=== PATIENT | female | born 1990 | race Caucasian/White ===

== ENCOUNTER 2019-04-13 19:44 | Emergency (ER) | payer MEDICAID ==
[~2019-04-13] VITALS: Ht 157.5 cm; Wt 61.3 kg
[~2019-04-13 19:44] MED LIST: CLIN-96 PO; IBUP-1986 PO; NITR100C11 PO
[2019-04-13 19:52] VITALS: BP 112/80
[2019-04-13] MEDS ORDERED: TETanus/Pertussis (Acell)/Diphther VAC/PF (Tdap-Adult) 0.5ml syringe IM ONE (20:55)
[2019-04-13] MEDS ORDERED: CEPH-571 PO (20:57)
== END 2019-04-13 21:08 | disposition home or self-care (01) ==
LOC: ER 19:45
DX: S61.432A Puncture wound without foreign body of left hand, initial encounter (principal); F41.9 Anxiety disorder, unspecified; F31.9 Bipolar disorder, unspecified; Z56.0 Unemployment, unspecified; Z79.2 Long term (current) use of antibiotics; Z79.899 Other long term (current) drug therapy; W22.8XXA Striking against or struck by other objects, initial encounter; Y93.89 Activity, other specified; Y92.89 Other specified places as the place of occurrence of the external cause; Y99.8 Other external cause status
CPT/HCPCS: 73130; 90471; 99283; 99285

== ENCOUNTER 2021-08-13 20:06 | Emergency (ER) | payer MEDICAID ==
[~2021-08-13] VITALS: Ht 157.5 cm; Wt 75.9 kg
[~2021-08-13 20:06] MED LIST changes: +CEPH-571 PO; -CLIN-96 PO; +CLIN-97 PO
[2021-08-13 20:21] VITALS: BP 143/98
--- NOTE | 2021-08-13 20:54 | NUR ---
PATIENT LEFT WITHOUT BEING SEEN STATING THAT SHE "WILL JUST GO TO URGENT CARE TOMORROW"
== END 2021-08-13 20:55 | disposition left against medical advice (07) ==
LOC: ER 20:07
DX: K08.89 Other specified disorders of teeth and supporting structures (principal); Z53.21 Procedure and treatment not carried out due to patient leaving prior to being seen by health care provider

== ENCOUNTER 2021-09-03 18:09 | Emergency (ER) | payer MEDICAID ==
[~2021-09-03] VITALS: Ht 157.5 cm; Wt 75.0 kg
[2021-09-03 18:50] VITALS: BP 119/99
[2021-09-03 19:28] LABS: URINE HCG NEGATIVE (NEG)
[2021-09-03 19:32] LABS: CLARITY,URINE CLOUDY (Clear); COLOR,URINE YELLOW (Yellow); GLUCOSE, URINE NEGATIVE (Neg); KETONES,URINE NEGATIVE (Neg); LEUKOCYTE ESTERASE ,URINE MODERATE (Neg); NITRITES, URINE POSITIVE (Neg); OCCULT BLOOD,URINE SMALL (Neg); PROTEIN,URINE 30 mg/dl (Neg); UROBILINOGEN,URINE 0.2 E.U/dL (0.2-1.0)
[2021-09-03 19:33] LABS: UA COLLECTION TYPE CLN CATCH MIDSTREAM
[2021-09-03 19:37] LABS: WBC,URINE TNTC /HPF (0-4)
[2021-09-03 19:38] LABS: BACTERIA,URINE 3+ /HPF (Neg); FINE GRANULAR CAST 0-3 /LPF (NEGATIVE); MUCUS STRANDS FEW /LPF (Neg); SQUAMOUS EPITHELIAL CELL,UR NONE SEEN /LPF (FEW)
[2021-09-03 19:43] LABS: BASOPHILS % (AUTO) 0.4 % (0-1); EOSINOPHILS # (AUTO) 0.1 X10'3 (0-0.9); EOSINOPHILS % (AUTO) 1.1 % (0-6); HEMATOCRIT 36.2 % (35.0-45.0); HEMOGLOBIN 11.9 g/dl (12.0-16.0); LYMPHOCYTES % (AUTO) 9.3 % (21-51); MEAN CORPUSCULAR HEMOGLOBIN 28.9 PG (27.0-31.0); MEAN CORPUSCULAR VOLUME 87.7 FL (78-98); MEAN PLATELET VOLUME 7.2 FL (7.4-10.4); MONOCYTES # (AUTO) 1.2 X10'3 (0-0.9); MONOCYTES % (AUTO) 10.6 % (2-12); NEUTROPHILS # (AUTO) 8.8 X10'3 (1.8-7.7); NEUTROPHILS % (AUTO) 78.6 % (42-75); PLATELET COUNT 339 X10'3 (140-440); RED BLOOD COUNT 4.13 X10'6 (4.20-5.60); RED CELL DISTRIBUTION WIDTH 14.1 % (11.5-14.5); WHITE BLOOD COUNT 11.1 X10'3 (4.5-11.0)
[2021-09-03 19:57] LABS: ALANINE AMINOTRANSFERASE 21 U/L (12-78); ALBUMIN 3.8 G/DL (3.4-5.0); ALKALINE PHOSPHATASE 113 IU/L (46-116); ANION GAP 4 (8-16); ASPARTATE AMINO TRANSFERASE 20 U/L (10-37); BILIRUBIN,TOTAL 0.4 MG/DL (0.1-1.0); BLOOD UREA NITROGEN 13 MG/DL (7-18); BUN/CREATININE RATIO 19.4 (6.6-38.0); CALCIUM 8.2 MG/DL (8.5-10.1); CHLORIDE 105 MMOL/L (99-107); CREATININE 0.67 MG/DL (0.40-0.90); GLUCOSE 95 MG/DL (70-104); POTASSIUM 4.1 MMOL/L (3.5-5.1); SODIUM 138 MMOL/L (135-145); TOTAL CARBON DIOXIDE 28.6 MMOL/L (24-32); TOTAL PROTEIN 7.7 G/DL (6.4-8.2); eGFR > 90 ML/MIN
== END 2021-09-04 00:49 | disposition left against medical advice (07) ==
LOC: ER 18:10
DX: R10.9 Unspecified abdominal pain (principal); Z53.21 Procedure and treatment not carried out due to patient leaving prior to being seen by health care provider
CPT/HCPCS: 36415; 80053; 81001; 81025; 85025; 87077; 87088; 87186

== ENCOUNTER 2023-09-02 17:27 | Emergency (ER) | payer MEDICAID ==
[~2023-09-02] VITALS: Ht 157.5 cm; Wt 70.8 kg
[2023-09-02 17:53] VITALS: TEMP 98
[2023-09-02 18:51] LABS: BASOPHILS % (AUTO) 0.6 % (0-1); EOSINOPHILS # (AUTO) 0.4 X10'3 (0-0.9); EOSINOPHILS % (AUTO) 5.9 % (0-6); HEMATOCRIT 37.7 % (35.0-45.0); HEMOGLOBIN 12.4 g/dl (12.0-16.0); LYMPHOCYTES # (AUTO) 1.1 X10'3 (1.1-4.8); LYMPHOCYTES % (AUTO) 14.5 % (21-51); MEAN CORPUSCULAR HEMOGLOBIN 26.5 PG (27.0-31.0); MEAN CORPUSCULAR HGB CONC 32.9 g/dL (33.0-36.5); MEAN CORPUSCULAR VOLUME 80.7 FL (78-98); MEAN PLATELET VOLUME 7.2 FL (7.4-10.4); MONOCYTES # (AUTO) 0.8 X10'3 (0-0.9); PLATELET COUNT 392 X10'3 (140-440); RED BLOOD COUNT 4.67 X10'6 (4.20-5.60); RED CELL DISTRIBUTION WIDTH 18.9 % (11.5-14.5); WHITE BLOOD COUNT 7.3 X10'3 (4.5-11.0)
[2023-09-02 19:08] LABS: ALANINE AMINOTRANSFERASE 19 U/L (12-78); ALBUMIN 3.7 G/DL (3.4-5.0); ALBUMIN/GLOBULIN RATIO 0.9 (1.1-1.5); ALKALINE PHOSPHATASE 140 IU/L (46-116); ANION GAP 10 (8-16); ASPARTATE AMINO TRANSFERASE 24 U/L (10-37); BILIRUBIN,TOTAL 0.3 MG/DL (0.1-1.0); BLOOD UREA NITROGEN 9 MG/DL (7-18); BUN/CREATININE RATIO 10.8 (10.0-20.0); CALCIUM 9.3 MG/DL (8.5-10.1); CHLORIDE 104 MMOL/L (99-107); CREATININE 0.83 MG/DL (0.40-0.90); GLUCOSE 92 MG/DL (70-104); POTASSIUM 3.7 MMOL/L (3.5-5.1); SODIUM 143 MMOL/L (135-145); TOTAL CARBON DIOXIDE 29.2 MMOL/L (24-32); TOTAL PROTEIN 7.9 G/DL (6.4-8.2); eCRCL 78 ML/MIN; eGFR 81 ML/MIN
[2023-09-02] MEDS ORDERED: iohexol 300mg/ml 100ml inj. ONE (19:35)
[2023-09-02] MEDS ORDERED: dexamethasone sod phosphate 10mg/ml inj IV STA (21:27)
[2023-09-02] MEDS ORDERED: ketorolac tromethamine 15mg/ml inj. IV ONE (21:30)
[2023-09-02] MEDS ORDERED: CefTRIAXone/D5W-Rocephin 1gm 50 ML IV ONE (21:30)
[2023-09-02] MEDS ORDERED: IBUP-1984 PO (21:32)
[2023-09-02] MEDS ORDERED: AZIT250T83 PO (21:32)
[2023-09-02 22:01] VITALS: BP 116/88; PULSE 80; RESP 16; O2SAT 99
[2023-09-02 22:20] LABS: ANISOCYTOSIS 2+; PLATELET ESTIMATE NORMAL
== END 2023-09-02 22:13 | disposition home or self-care (01) ==
LOC: ER 17:28
DX: J03.90 Acute tonsillitis, unspecified (principal); F31.9 Bipolar disorder, unspecified; Z79.899 Other long term (current) drug therapy; Z59.00 Homelessness unspecified
CPT/HCPCS: 36415; 70491; 80053; 83605; 84145; 85008; 85025; 87040; 96365; 96375; 99285; J0696; J1100; J1885; J3490; Q9967

== ENCOUNTER 2024-05-12 02:27 | Emergency (ER) | payer MEDICAID ==
[~2024-05-12] VITALS: Ht 157.5 cm; Wt 70.9 kg
[2024-05-12] MEDS ORDERED: CIPR2.5D21 RIGHTEYE (03:29)
[2024-05-12] MEDS: ibuprofen tablet 400 MG TABLET PO ONE (03:36)
[2024-05-12] MEDS: acetaminophen 325mg tablet PO ONE (03:36)
[2024-05-12] MEDS: ciprofloxacin 0.3% 2.5ml ophthalmic solution RIGHTEYE ONE (03:37)
[2024-05-12 03:43] VITALS: BP 142/78; PULSE 80; RESP 14; TEMP 98.2; O2SAT 98
== END 2024-05-12 03:45 | disposition home or self-care (01) ==
LOC: ER 02:28
DX: S05.00XA Injury of conjunctiva and corneal abrasion without foreign body, unspecified eye, initial encounter (principal); F41.9 Anxiety disorder, unspecified; F31.9 Bipolar disorder, unspecified; Z79.2 Long term (current) use of antibiotics; Z79.1 Long term (current) use of non-steroidal anti-inflammatories (NSAID); Z79.899 Other long term (current) drug therapy; Z56.0 Unemployment, unspecified; X58.XXXA Exposure to other specified factors, initial encounter; Y93.89 Activity, other specified; Y92.89 Other specified places as the place of occurrence of the external cause; Y99.8 Other external cause status
CPT/HCPCS: 99284